=== PATIENT | female | born 1965 ===

== ENCOUNTER 2022-01-03 07:43 | Day surgery (SDC) | payer BC ==
[~2022-01-03 07:43] MED LIST: Lactated Ringers 1,000 ML IV SCH; Lidocaine 1% with EPINEPHrine 1:100,000 10 ML MDV ONE; Lidocaine 1%/Sod Bicarbonate in NS 8.4% 1 ML Syringe IDERM PRN; Sodium Chloride 0.9% 10 ML Syringe FLUSH PRN; Sodium Chloride 0.9% 10 ML Syringe FLUSH SCH
[2022-01-03] MEDS ORDERED: Lidocaine 1% 4 ML ONE (08:22)
[2022-01-03] MEDS ORDERED: Midazolam 1 MG/ML 2 ML SDV ONE (08:22)
[2022-01-03] MEDS ORDERED: fentaNYL 100 MCG/2 ML SDV ONE (08:22)
[2022-01-03] MEDS ORDERED: Propofol 200 MG/20 ML SDV ONE (08:23)
[2022-01-03] MEDS ORDERED: Lidocaine 1% with EPINEPHrine 1:100,000 20 ML MDV ONE (08:32)
== END 2022-01-03 10:08 | disposition home or self-care (01) ==
LOC: JD.SDS 07:43
PROVIDERS: ATTEND Surgery
DX: Z12.11 Encounter for screening for malignant neoplasm of colon (principal); K64.4 Residual hemorrhoidal skin tags; D23.61 Other benign neoplasm of skin of right upper limb, including shoulder; K64.8 Other hemorrhoids; Z79.899 Other long term (current) drug therapy
CPT/HCPCS: 11401; 45378; J2250; J2704; J3010; J7120; 00812